=== PATIENT | female | born 1990 | race Caucasian/White ===

== ENCOUNTER 2021-04-09 19:50 | Emergency (ER) | payer SELFPAY ==
[~2021-04-09] VITALS: Ht 154.9 cm; Wt 68.2 kg
[2021-04-09 19:53] VITALS: BP 125/70
== END 2021-04-09 21:15 | disposition home or self-care (01) ==
LOC: EMS 19:51
DX: S61.210A Laceration without foreign body of right index finger without damage to nail, initial encounter (principal); W26.8XXA Contact with other sharp object(s), not elsewhere classified, initial encounter; Y93.89 Activity, other specified; Y92.89 Other specified places as the place of occurrence of the external cause; Y99.8 Other external cause status
CPT/HCPCS: 12001; 99282; Z7502